=== PATIENT | male | born 1980 | race Two or more races ===

== ENCOUNTER 2022-07-31 11:45 | Emergency (ER) | payer OTHER ==
--- NOTE | 2022-07-31 11:58 | NUR ---
called in ed waiting room. no response.
--- NOTE | 2022-07-31 12:26 | NUR ---
called in ed waiting room, no response. left w/out being triaged.
== END 2022-07-31 12:29 | disposition left against medical advice (07) ==
LOC: ER 11:45
DX: Z53.21 Procedure and treatment not carried out due to patient leaving prior to being seen by health care provider (principal)